=== PATIENT | male | born 1980 | race African-American/Black ===

== ENCOUNTER 2018-09-15 06:11 | Day surgery (SDC) | payer OTHER ==
[2018-09-15] MEDS ORDERED: ceFAZolin 2 GM/50 ML 2 GM/50 ML BAG IV ONE (06:26)
[2018-09-15] MEDS ORDERED: LACTATED RINGERS 1,000 ML IV ONE (07:08)
[2018-09-15] MEDS ORDERED: BUPIVACAINE 0.25%-EPI 1:200000 PF 30 ML VIAL ONE (07:09)
--- NOTE | 2018-09-15 07:09 | ANESTHESIA ---
Pre-Anesthesia VS, & Labs - Diagnosis L ankle symptomatic implants - Procedure L ankle hardware removal Vital Signs: Temp Pulse Resp BP Pulse Ox 36.6 C 96 18 131/94 H 98 09/15/18 06:37 09/15/18 06:37 09/15/18 06:37 09/15/18 06:37 09/15/18 06:37 Height 5 ft 11 in Weight (kg) 102.51 kg Home Medications and Allergies Home Medications: Ambulatory Orders No Known Home Medications 09/13/18 No Known Home Medications 09/13/18 Allergies/Adverse Reactions: Allergies Allergy/AdvReac Type Severity Reaction Status Date / Time No Known Drug Allergies Allergy Verified 09/13/18 12:02 Anes History & Medical History - Anesthetic History Anesthesia Complications: reports: No previous complications Family history of Anesthesia Complications: Denies Family history of Malignant Hyperthermia: Denies - Medical History Cardiovascular: reports: None Pulmonary: reports: None Gastrointestinal: reports: None Urinary: reports: None Musculoskeletal: reports: Chronic back pain, Other Endocrine/Autoimmune: reports: None Skin: reports: None - Surgical History Orthopedic: Other Exam General: Alert, Oriented x3, Cooperative Dental: WNL Mouth Opening: Greater than 4 Fingerbreadths Neck Mobility: Normal Mallampati classification: I Thyromental Distance: greater than 6 cm Respiratory: Lungs clear, Normal breath sounds, No respiratory distress Cardiovascular: Regular rate Neurological: Normal speech Mental/Cognitive Status: Alert/Oriented X3 Plan Anesthesia Type: General, Sciatic Nerve Block Regional Block: Per Surgeon's request for Post Op pain control Consent for Procedure(s) Verified and Reviewed: Yes Code Status: Attempt Resuscitation ASA classification: 2-Mild systemic disease Is this case an emergency?: No
[2018-09-15] MEDS ORDERED: ROPIVACAINE 0.5% PF 20 ML AMPULE ONE (07:13)
[2018-09-15] MEDS ORDERED: DEXAMETHASONE 4 MG/ML VIAL ONE (07:13)
[2018-09-15] MEDS ORDERED: PROPOFOL 200 MG/20 ML VIAL IVP ONE (08:00)
[2018-09-15] MEDS ORDERED: KETOROLAC 30 MG/ML VIAL IVP ONE (08:00)
[2018-09-15] MEDS ORDERED: LIDOCAINE-MPF 2% 5 ML VIAL IM ONE (08:00)
[2018-09-15] MEDS ORDERED: ONDANSETRON 4 MG/2 ML VIAL IVP ONE (08:00)
[2018-09-15] MEDS ORDERED: ROCURONIUM 50 MG/5 ML VIAL IVP ONE (08:00)
[2018-09-15] MEDS ORDERED: fentaNYL 100 MCG/2 ML VIAL IVP ONE (08:00)
[2018-09-15] MEDS ORDERED: GLYCOPYRROLATE 1 MG/5 ML VIAL IVP ONE (08:00)
[2018-09-15] MEDS ORDERED: DEXAMETHASONE 4 MG/ML VIAL IVP ONE (08:00)
[2018-09-15] MEDS ORDERED: NEOSTIGMINE 1 MG/1 ML 10 ML MDV IVP ONE (08:00)
[2018-09-15] MEDS ORDERED: MIDAZOLAM 2 MG/2 ML VIAL IVP ONE (08:00)
--- NOTE | 2018-09-15 09:47 | OPERATIVE REPORT ---
Operative Report - General Procedure Date: 09/15/18 Planned Procedure: Left ankle implant removal, peroneal exploration, possible syndesmosis fixa Pre-Op Diagnosis: Left ankle symptomatic implants, peroneal tenosynovitis Procedure Performed: Left ankle implant removal, peroneal exploration Post Op Diagnosis: Left ankle symptomatic implants - Procedure Note Primary Surgeon: Manuel Park Secondary Surgeon: Allen Caicedo Estimated Blood Loss (mL): 10 - Other Other Information/Narrative: TT - 72 minutes Indication For Surgery: 38M s/p syndesmosis debridement, fibula nonunion ORIF and syndesmotic fixation on 20 January 2018. He continues to have pain posterolaterally at the ankle which may represent irration of the peroneals. The goals of surgery are to remove any potential irritant to the peroneals and debride them if torn. The risks, benefits, and alternatives were discussed. Risks include pain, bleeding, infection, damage to nearby structures and cartilage, lack of symptom relief, need for further surgery, DVT, PE, stroke, and . Written consent was obtained. Findings: Fibula fracture healed. syndesmosis stable. peroneal tendons without tear Procedure in Detail: The patient was met in the pre-operative hold area on the day of the procedure. The operative extremity was signed and questions were answered. The patient was brought to the operating room and a general anesthetic was administered. Supine position was used and bony prominences were padded. An examination under anesthesia was performed. Standard prepping and draping was performed. A time out confirmed patient identification, laterality, procedure, allergies, antibiotics, and images. An esmarch was used to exanguinate the limb and the tourniquet was elevated to 250mm mercury. The incision level was localized with fluoroscopy and the prior incision was used. I sharply dissected down to the peroneal tendon sheath and worked anterior to it to get to the bone. Full thickness flaps were created. I took a knife onto the plates and carefully removed all screws and plates. I then curetted the holes and rongeured bony prominences. I used the medial incision and carefully dissected around the saphenous vein to the medial button and it was removed with all suture. I then opened the peroneal sheath, maintaining the retinaculum and inspected the tendons. There was significant tenosynovium and a low lying muscle belly on peroneal brevis and these were resected. There were no tears seen. I then took final images and performed an external rotation stress test, the syndesmosis was stable. The fibula felt stable within the wound. I irrigated the wounds copiously and closed. Running 0 vicryl in the peroneal tendon sheath. 2-0 vicryl in the dermis and running nylon in the skin. A sterile dressing and splint was applied Postoperative plan: NWB for 2 weeks. WBAT without any impact activities for 6 weeks. resume full activity at 6 weeks. NWB L ankle xrays at 2 week follow up. Aspirin for 4 weeks.
[2018-09-15] MEDS ORDERED: oxyCODONE 5 MG TABLET PO PRN (10:01)
[2018-09-15] MEDS ORDERED: ONDANSETRON 4 MG/2 ML VIAL IVP PRN (10:01)
[2018-09-15] MEDS ORDERED: oxyCODONE 5 MG TABLET ONE (10:34)
[2018-09-15 11:21] VITALS: BP 125/77
--- NOTE | 2018-09-15 15:29 | XRAY Report ---
Reason: ORIF left ankle Procedure Date: 09/15/2018 Accession Number: [id number] / [id number] Procedure: FL - OR C-Arm Procedure CPT Code: FULL RESULT: IMPRESSION: Fluoroscopic guidance provided for left ankle hardware removal.. Total fluoroscopy time: 9 seconds.. Number of images: 3 RADIA
--- NOTE | 2018-09-15 15:48 | XRAY Report ---
Reason: LEFT ANKLE ORIF REMOVAL Procedure Date: 09/15/2018 Accession Number: [id number] / [id number] Procedure: XR - Ankle 2 View LT CPT Code: FULL RESULT: EXAM: Ankle LT DATE: 09/15/2018 9:19 AM CLINICAL HISTORY: LEFT ANKLE HARDWARE REMOVAL COMPARISON: None. TECHNIQUE: 3 views. FINDINGS/IMPRESSION: 3 fluoroscopic images are obtained of the left ankle after hardware removal from the distal fibula. No definite residual metallic fragments are seen. RADIA
== END 2018-09-15 06:12 | disposition home or self-care (01) ==
LOC: SDS 06:11
PROVIDERS: ATTEND Orthopaedic Surgery
PROC: 0SPG04Z Removal of Internal Fixation Device from Left Ankle Joint, Open Approach (ICD-10-PCS; principal; 2018-09-15 07:30)
DX: T84.84XA Pain due to internal orthopedic prosthetic devices, implants and grafts, initial encounter (principal); M25.572 Pain in left ankle and joints of left foot; M54.5 Low back pain; M54.16 Radiculopathy, lumbar region
CPT/HCPCS: 20680; 73600; A9270; J0690; J7120